=== PATIENT | female | born 1985 | race Caucasian/White ===

== ENCOUNTER 2022-11-04 19:32 | Emergency (ER) | payer OTHER ==
[2022-11-04] MEDS ORDERED: fentaNYL 50 MCG/ML SDV IM ONE (20:21)
[2022-11-04] MEDS ORDERED: Ondansetron 4 MG Tab.DIS PO ONE (20:59)
== END 2022-11-04 21:34 | disposition home or self-care (01) ==
LOC: JP.ED 19:32
DX: S00.11XA Contusion of right eyelid and periocular area, initial encounter (principal); J45.909 Unspecified asthma, uncomplicated; F17.210 Nicotine dependence, cigarettes, uncomplicated; Z98.890 Other specified postprocedural states; Z88.8 Allergy status to other drugs, medicaments and biological substances; Z88.1 Allergy status to other antibiotic agents; Z88.5 Allergy status to narcotic agent; Z91.040 Latex allergy status; Z88.2 Allergy status to sulfonamides; Z79.899 Other long term (current) drug therapy; W21.07XA Struck by softball, initial encounter; Y93.64 Activity, baseball
CPT/HCPCS: 70486; 96372; 99283; J3010; Q0162